=== PATIENT | male | born 1990 | race Two or more races ===

== ENCOUNTER 2017-11-22 07:48 | Emergency (ER) | payer MEDICAID ==
[~2017-11-22] VITALS: Ht 180.3 cm; Wt 93.2 kg
[2017-11-22 07:57] VITALS: Ht 180.3 cm; Wt 93.2 kg
[2017-11-22 10:16] VITALS: BP 125/58
== END 2017-11-22 10:16 | disposition home or self-care (01) ==
LOC: ED 07:48
DX: J11.1 Influenza due to unidentified influenza virus with other respiratory manifestations (principal)
CPT/HCPCS: J1885; J7030

== ENCOUNTER 2018-12-10 20:24 | Emergency (ER) | payer MEDICAID ==
[~2018-12-10] VITALS: Ht 177.8 cm; Wt 94.9 kg
[2018-12-10 22:36] VITALS: BP 145/75
== END 2018-12-10 22:36 | disposition home or self-care (01) ==
LOC: ED 20:24
DX: R09.1 Pleurisy (principal); R07.1 Chest pain on breathing
CPT/HCPCS: Q0092